=== PATIENT | female | born 1960 | race Caucasian/White ===

== ENCOUNTER → 2016-06-12 | Outpatient (CLI) | payer BC ==
[~2016-06-12] MED LIST: AUGMENTIN875 MG PO; CIPRO750 MG PO; CUBICIN500 MG IV; DIFLUCAN DPS100 MG PO; DULERA 200/58.8 GM IH; DUONEB DPS3 ML IH; EFFEXOR XR DPS150 M1 PO; ELIQUIS5 MG PO; GLUCOPHAGE-DPS500 MG PO; LANTUS100 UNITS/ SQ; LEVAQUIN DPS500 MG PO; MAALOX DPS30 ML PO; MAXIPIME2 GM IV; MIRALAX PACKET17 GM PO; NORCO 7.5-3251 EACH PO; NOVOLOG100 UNIT/2 SQ; PHENERGAN DPS25 MG PO; PRILOSEC DPS20 MG PO; PRILOSEC40 MG PO; SENNA S TABLET1 EACH PO; SEROQUEL200 MG PO; SURFAK DPS240 MG PO; TESSALON PERLE100 MG PO; TRESIBA SQ; TYLENOL DPS325 MG PO; VASOTEC DPS2.5 MG PO; VOLTAREN75 MG PO
== END | disposition home or self-care (01) ==
LOC: CARD 07:58
DX: R00.0 Tachycardia, unspecified (principal)